=== PATIENT | male | born 1960 | race Caucasian/White ===

== ENCOUNTER 2021-02-09 16:54 | Emergency (ER) | payer SELFPAY ==
[2021-02-09 16:56] VITALS: BP 131/85; PULSE 95; RESP 16; TEMP 36.9; O2SAT 94; BMI 26.4
[2021-02-09 17:05] VITALS: BP 141/87; PULSE 88; RESP 15; O2SAT 95; O2SAT 96
--- NOTE | 2021-02-09 17:27 | EDS_ITS ---
HPI History of Present Illness Chief Complaint: Shortness of Breath Detail of Chief Complaint: Cough and shortness of breath for about a week Informant: patient Narrative Narrative: Patient presents to the emergency department the cough that started out a week ago. Patient describes body aches and mild headaches. He describes low-grade fevers up to 99 8. Patient had abdominal discomfort but that is now since resolved over the last 24 hours. He denies loss of taste or smell. He denies urinary symptoms. He denies any Covid exposures however he is not vaccinated against COVID-19. Patient describes general weakness in his legs. Prior similar symptoms: No PFSH PFSH Medical History Non-smoker Home Medications NK 02/09/21 [History Last Taken Unknown] Allergy/AdvReac Type Severity Reaction Status Date / Time No Known Allergies Allergy Verified 02/09/21 16:56 Social History Smoking Status: Never smoker ROS ROS ED Constitutional Constitutional ED: Reports systems reviewed and no addt'l complaints, except as documented, chills and fever(s); Denies body ache(s) or change in weight Eyes Eyes: Denies acute decrease in peripheral vision, change in vision, double vi christine or loss of vision ENT ENT ED: Reports none; Denies ear pain, lip swelling, loss taste/smell, neck pain, otalgia or sore throat Cardiovascular Cardiovascular: Reports none; Denies abdominal pain, chest pain with activity, leg edema, lightheadedness, palpitations, rapid heart rate or syncope Respiratory/Chest Respiratory/Chest: Reports none, cough and dyspnea; Denies change in mental status, dry cough, hemoptysis, shortness of breath at rest or shortness of breath with exertion Gastrointestinal Gastrointestinal: Reports none; Denies abdominal pain, change in stool character, diarrhea, hematemesis, hematochezia, melena, rectal bleeding or vomiting Genitourinary Genitourinary ED: Reports none; Denies abdominal discomfort, anuria, dysuria, genital pain or polyuria Musculoskeletal Musculoskeletal: Reports none; Denies arthralgias, back pain, difficulty walking, extremity pain, muscle weakness or myalgias Integumentary Reports none; Denies abscess or rash Neurologic Neurologic: Reports none, headache(s) and weakness; Denies abnormal gait, confusion, focal weakness, frequent falls, loss of vision, numbness, paresthesias, radicular pain or vertigo Psychiatric Psychiatric: Reports systems reviewed and no addt'l complaints, except as documented and none; Denies behavioral changes, confusion, difficulty concentrating, hallucinations, suicidal ideation, tactile hallucinations or visual hallucinations Endocrine Endocrinology: Denies none, cold intolerance, excessive sweating, fatigue or heat intolerance Hematologic/Lymphatic Hematologic/Lymphatic: Reports none; Denies anemia, easy bleeding or easy bruising Allergic/Immunologic Allergic/Immunologic ED: Denies as per HPI, none, lip swelling, mouth swelling, throat swelling, tongue swelling or hives EXAM Physical Exam Const Vital Signs: 02/09/21 16:56 02/09/21 17:05 Temperature 98.4 F Temperature Source Temporal Pulse Rate 95 88 Respiratory Rate 16 15 Respiratory Effort Normal Respiratory Depth Normal Respiratory Pattern Normal Blood Pressure 131/85 H 141/87 H Blood Pressure Mean 100 105 Pulse Ox 94 96 Oxygen Delivery Method Room Air Room Air Positive well nourished and well developed General Appearance ED: well developed and NAD HEENT Reports TM's clear and moist mucous membranes normocephalic and atraumatic; Negative for trauma or tenderness Tympanic Membrane ED: Yes TM's clear Eyes PERRL and EOMs intact bilaterally General Eye ED: Negative for pale conjunctiva or scleral icterus Neck no lymphadenopathy, supple and no JVD General: Negative for tenderness Chest Wall inspection of chest normal and palpation of chest normal Chest: Negative for tenderness Resp normal respiratory effort and clear to auscultation bilaterally Effort and Inspection: Negative for respiratory distress or pain with movement Auscultation: Negative for rhonchi, wheezes or diminished lung sounds Cardio regular rate, regular rhythm, S1 normal heart sound, S2 normal heart sound and no murmurs Peripheral Pulses: pulses 2+ throughout GI normal to inspection, nondistended, normoactive bowel sounds, soft to palpation, non-tender, non-distended and no masses Back/Spine no CVA tenderness and no thoracic nor lumbar tenderness Extremity normal to inspection General Extremety ED: Negative for edema General Extremity: Negative for edema Neuro oriented x3, CN's II-XII intact bilaterally, no sensory deficits noted and gait normal Sensorium / Orientation: awake, alert, oriented to person, oriented to place and oriented to time Motor Exam: strength 5/5 throughout and strength abnormal Psych mental status grossly normal Skin no rashes or lesions noted and no wounds MDM MDM MDM Narrative Medical decision making narrative: Patient is positive for Covid. There is no evidence of PE on CTA. He does have Covid appearing pneumonia on CT. Patient does not qualify for monoclonal antibodies as he does not meet criteria. Patient advised to return if increasing shortness of breath or condition should worsen anyway. Lab Data Attestation: I reviewed the patient's lab results. Labs: Laboratory Results - last 24 hr 02/09/21 02/09/21 02/09/21 17:38 17:38 17:38 WBC 3.9 L RBC 5.14 Hgb 14.9 Hct 44.1 MCV 85.8 MCH 29.0 MCHC 33.8 RDW Std Deviation 39.9 RDW Coeff of Gabriel 12.7 Plt Count 190 MPV 9.3 Immature Gran % (Auto) 0.500 Neut % (Auto) 75.2 H Lymph % (Auto) 15.3 L [place] % (Auto) 8.4 Eos % (Auto) 0.3 Baso % (Auto) 0.3 Absolute Neuts (auto) 3.0 Absolute Lymphs (auto) 0.60 L Nucleated RBC % 0 Differential Comment SEE COMMENT Diff Path Review May foll Platelet Estimate ADEQUATE RBC Morphology N CHROM Anisocytosis RARE D-Dimer Quant (PE/DVT) 1.10 H* Sodium 137 Potassium 3.4 L Chloride 101 Carbon Dioxide 26.0 Anion Gap 10 BUN 10 Creatinine 0.81 Estim Creat Clear Calc 83.31 Est GFR (MDRD) Af Amer 125 Est GFR (MDRD) Non-Af 103 BUN/Creatinine Ratio 12.4 Glucose 102 Calcium 8.2 L Total Bilirubin 0.50 AST 37 ALT 38 Alkaline Phosphatase 80 Total Protein 7.0 Albumin 3.1 L Globulin 3.9 Albumin/Globulin Ratio 0.8 L Radiography Diagnostic Testing: Radiology Impression Chest X-Ray 02/09/21 17:52 IMPRESSION: Normal x-ray examination of the chest. Electronically Signed: Christy Clemons MD at 18:31 EDT Tel , Service support , Chest CTA 02/09/21 18:51 IMPRESSION: 1. No pulmonary embolism 2. Acute Covid pneumonia. Electronically Signed: Christy Clemons MD at 19:43 EDT Tel , Service support , 1 view chest x-ray obtained interpreted by myself as mild hazy increased markings bilaterally. Radiology felt the x-ray looked normal. Discharge Plan Triage Chief Complaint: Shortness of Breath ED Provider: Blanca Carrington Dx/Rx/DC Orders Clinical Impression: COVID-19 Instructions: Caring for Someone Who Has COVID-19 Prescriptions: No Action NK RF: 0 Primary Care Provider: Jung Norman Referrals: Jung Norman MD [Primary Care Provider] - 5-7 Days Disposition Disposition: Home, Self Care
[2021-02-09 17:51] LABS: Basophil# 0.01 X10^3/uL; Basophil% 0.3 % (0-1); Eosinophil# 0.01 X10^3/uL; Eosinophils% 0.3 % (0-5); Hematocrit 44.1 % (40-54); Hemoglobin 14.9 g/dL (13.0-16.5); Lymphocyte % 15.3 % (19-41); Mean Corp Hgb Conc 33.8 g/dL (32-36); Mean Corpuscular Volume 85.8 fL (80-94); Mean Platelet Vol. 9.3 fl (6.2-12.0); Monocyte# 0.33 X10^3/uL; Monocyte% 8.4 % (0-10); NRBC Flagged by Analyzer 0 % (0-5); Neutrophil # 2.95 X10^3/uL (2.7-7.7); Neutrophil % 75.2 % (47-70); POSITIVE DIFFERENTIAL YES; Platelet Count 190 K/mm3 (150-450); RBC Distribution Width CV 12.7 % (11.6-14.6); RBC Distribution Width SD 39.9 fl (35.1-43.9); Red Blood Count 5.14 M/mm3 (4.6-6.2); White Blood Count 3.9 K/mm3 (4.4-11.0)
[2021-02-09 17:52] LABS: Differential Indicated SCAN CRITERIA MET
--- NOTE | 2021-02-09 17:52 | RAD_ITS ---
STUDY: X-RAY CHEST REASON FOR EXAM: Male, 60 years old. cough shortness of breath bilateral leg weakness for one week TECHNIQUE: Frontal view of the chest COMPARISON: None. FINDINGS: The lungs are clear and expanded. There is no demonstrated pleural abnormality. Normal size heart. Normal mediastinum and [place]ia [place]. Normal visualized pulmonary arteries. Normal visualized aortic arch and descending thoracic aorta. Normal visualized thoracic spine. Normal visualized ribs, clavicles, and shoulders. There is no demonstrated abnormality of the visualized soft tissue structures of the upper abdomen. RAD/Chest 1 View (Portable) IMPRESSION: Normal x-ray examination of the chest. Electronically Signed: Christy Clemons MD at 18:31 EDT Tel , Service support ,
[2021-02-09] MEDS: 0.9% Normal Saline 1,000 ML 150 ML IV (17:55)
[2021-02-09 18:12] LABS: ALB/GLOB Ratio 0.8 RATIO (0.9-2.4); AST(SGOT) 37 U/L (15-37); Alanine Aminotransfer ALT/SGPT 38 U/L (16-61); Albumin, Serum 3.1 g/dL (3.2-5.0); Alkaline Phosphatase 80 U/L (45-117); Anion Gap 10 (5-15); BUN 10 mg/dL (7-18); BUN/Creat Ratio 12.4 RATIO (10-20); Calcium,Total 8.2 mg/dL (8.5-10.1); Chloride 101 mmol/L (98-107); Creatinine, Serum 0.81 mg/dL (0.70-1.30); EST Glomerular Filtration Rate 103 mL/min (>60); Est Glom Filt Rate - Afr Amer 125 mL/min (>60); Estimated Creatinine Clearance 83.31 ml/min; Globulin 3.9 g/dL (2.2-4.2); Glucose 102 mg/dL (74-106); Potassium 3.4 mmol/L (3.5-5.1); Sodium Level 137 mmol/L (136-145)
[2021-02-09 18:44] LABS: Anisocytosis RARE; Platelet Estimate ADEQUATE (ADEQ); Red Cell Morphology N CHROM NORMAL (NORM C&C)
--- NOTE | 2021-02-09 18:51 | CT_ITS ---
STUDY: CTA CHEST REASON FOR EXAM: Male, 60 years old. Elevated d-dimer weakness dyspnea RADIATION DOSAGE (If Supplied By Facility): CTDIvol = ( 10.62 ) mGy, DLP = ( 395.52 ) mGycm TECHNIQUE: The examination was performed with the intravenous administration of IV 75mL [id number]-[id number]. Post-processing of the angiographic images was performed, with multiplanar reformation and 3D reconstruction. Individualized dose optimization techniques were used for this CT. COMPARISON: None. FINDINGS: There is no acute or chronic pulmonary embolism. Aorta is of normal caliber. There are scattered bilateral groundglass regional and nodular opacities. There is no pneumothorax, pulmonary edema or pleural effusions. Mediastinal contents are normal. There is chronic compression fracture of T12 with 50% loss of height anteriorly. Spinal canal is patent. CT/CTA Chest W/WO Contrast IMPRESSION: 1. No pulmonary embolism 2. Acute Covid pneumonia. Electronically Signed: Christy Clemons MD at 19:43 EDT Tel , Service support ,
[2021-02-09 20:16] VITALS: BP 140/77; PULSE 78; RESP 16; O2SAT 95
[2021-02-10 15:00] LABS: Pathologist Review Reviewed
== END 2021-02-09 20:18 | disposition home or self-care (01) ==
PROVIDERS: Emergency Provider Emergency Medicine; PCP Family Medicine
DX: U07.1 COVID-19 (principal); J12.82 Pneumonia due to coronavirus disease 2019
CPT/HCPCS: 71045; 71275; 80053; 85025; 85379; 87040; 87426; 96360; 96361; 99284; J7030; Q9967

== ENCOUNTER 2023-09-02 17:30 | Outpatient (RCR) | payer SELFPAY | END 2023-09-07 23:59 | LOC: NS 17:30 | PROVIDERS: PCP Family Medicine | DX: Z71.3 Dietary counseling and surveillance (principal) ==

== ENCOUNTER 2023-12-13 17:30 | Outpatient (RCR) | payer SELFPAY | END 2024-01-08 23:59 | LOC: NS 17:30 | PROVIDERS: PCP Family Medicine | DX: Z71.3 Dietary counseling and surveillance (principal) ==

== ENCOUNTER 2024-03-13 15:56 | Outpatient (RCR) | payer SELFPAY | END 2024-04-08 23:59 | LOC: NS 15:56 | PROVIDERS: PCP Family Medicine | DX: Z71.3 Dietary counseling and surveillance (principal) ==